=== PATIENT | female | born 1945 | race Caucasian/White ===

== ENCOUNTER → 2017-09-16 | Outpatient (CLI) | payer OTHER, BC ==
[~2017-09-16] VITALS: Ht 166.4 cm; Wt 74.9 kg
[~2017-09-16] MED LIST: ARIMIDEX1 MG PO; ASCORBIC ACID500 M3 PO; DAILY MULTIPLE1 EACH PO; FLONASE16 G1 BOTH NARES; LISINOPRIL10 MG PO; SERTRALINE HCL50 MG PO; VITAMIN D32000 UNI1 PO; ZOCOR80 MG PO
== END | disposition home or self-care (01) ==
LOC: AMB 06:40
DX: Z12.11 Encounter for screening for malignant neoplasm of colon (principal); D12.2 Benign neoplasm of ascending colon; D12.4 Benign neoplasm of descending colon
CPT/HCPCS: 88305; 93005